=== PATIENT | male | born 1975 | race Caucasian/White ===

== ENCOUNTER → 2016-12-31 | Outpatient (CLI) | payer OTHER | LOC: COL.RAD 14:30 | DX: M76.892 Other specified enthesopathies of left lower limb, excluding foot (principal); M22.8X2 Other disorders of patella, left knee ==

== ENCOUNTER 2017-04-11 11:22 | Emergency (ER) | payer OTHER ==
[~2017-04-11] VITALS: Ht 188 cm; Wt 102.3 kg
[2017-04-11 11:35] VITALS: BP 145/112; PULSE 94; TEMP 97.6
[2017-04-11] MEDS ORDERED: NORCO 325 MG-51 TAB PO (12:45)
== END 2017-04-11 13:10 | disposition home or self-care (01) ==
LOC: COL.ER 11:22
DX: T22.112A Burn of first degree of left forearm, initial encounter (principal); T23.162A Burn of first degree of back of left hand, initial encounter; T25.121A Burn of first degree of right foot, initial encounter; T24.131A Burn of first degree of right lower leg, initial encounter; T24.132A Burn of first degree of left lower leg, initial encounter; X12.XXXA Contact with other hot fluids, initial encounter; Y92.238 Other place in hospital as the place of occurrence of the external cause
CPT/HCPCS: J1885

== ENCOUNTER → 2017-12-30 | Outpatient (CLI) | payer OTHER ==
[~2017-12-30] MED LIST: NORCO 325 MG-51 TAB PO
[2017-12-30 06:36] LABS: HEMATOCRIT 46.2 % (42.0-52.0); MEAN CELL VOLUME 86 fl (80.0-100.0); MEAN CORPUSCULAR HEMOGLOBIN 30 pg (27.0-31.0); MEAN CORPUSCULAR HGB CONC 35 g/dl (33.0-37.0); MEAN PLATELET VOLUME 9.6 fl (7.4-10.4); PLATELET COUNT 198 K/mm3 (130-400); RED BLOOD COUNT 5.37 M/mm3 (4.20-5.60); REDCELL DISTRIBUTION WIDTH-CV 12.7 % (11.5-14.5)
[2017-12-30 06:45] LABS: ALBUMIN 3.4 gm/dL (3.5-5.0); BILIRUBIN,TOTAL 0.6 mg/dL (0.0-1.0); CALCIUM 8.9 mg/dL (8.4-10.2); CHOLESTEROL RISK RATIO 3.9; CREATININE, serum 1.02 mg/dL (0.66-1.25); POTASSIUM 4.4 mmol/L (3.4-5.0); TOTAL PROTEIN 6.1 gm/dL (6.4-8.2)
[2017-12-30 07:15] LABS: THYROID STIMULATING HORMONE 2.22 uIU/mL (0.465-4.680)
== END ==
LOC: COL.LAB 06:10
PROVIDERS: Family Medicine
DX: Z00.00 Encounter for general adult medical examination without abnormal findings (principal)

== ENCOUNTER 2018-09-20 08:36 | Emergency (ER) | payer OTHER ==
[~2018-09-20] VITALS: Ht 188 cm; Wt 104.5 kg
[2018-09-20 08:39] VITALS: BP 155/116; PULSE 105; TEMP 98.3
[2018-09-20] MEDS ORDERED: NORCO 325 MG-51 TAB PO (09:56)
== END 2018-09-20 10:17 | disposition home or self-care (01) ==
LOC: COL.ER 08:36
DX: S62.623A Displaced fracture of middle phalanx of left middle finger, initial encounter for closed fracture (principal); S62.621A Displaced fracture of middle phalanx of left index finger, initial encounter for closed fracture; S62.635A Displaced fracture of distal phalanx of left ring finger, initial encounter for closed fracture; W22.8XXA Striking against or struck by other objects, initial encounter; Y92.009 Unspecified place in unspecified non-institutional (private) residence as the place of occurrence of the external cause
CPT/HCPCS: Q4050

== ENCOUNTER 2018-09-22 10:27 | Day surgery (SDC) | payer OTHER ==
[2018-09-22] MEDS ORDERED: ALLEGRA 60MG TA60 MG PO (11:27)
[2018-09-22] MEDS ORDERED: SUDAFED30 MG PO (11:29)
[2018-09-22 14:03] VITALS: BP 129/89; PULSE 73; TEMP 97.3
[2018-09-22 14:18] VITALS: BP 125/85; PULSE 75; TEMP 97.3
--- NOTE | 2018-09-22 14:30 | NUR ---
patient returns from OR via cart to bat 4. alert and oriented x 3. post op vital signs started. denies pain. water and coke given. spouse brought to room. call light within reach. will continue to monitor.
--- NOTE | 2018-09-22 14:31 | NUR ---
PATIENT WAS GIVEN A MUFFIN AND STRAWBERRY JELLO. SPOUSE AT BEDSIDE. VITAL SIGNS CONTINUE. CALL LIGHT WITHIN REACH. WILL CONTINUE TO MONITOR.
[2018-09-22 14:32] VITALS: BP 133/92; PULSE 74
[2018-09-22] MEDS ORDERED: NORCO 325 MG-51 TAB PO (14:50)
[2018-09-22 15:10] VITALS: BP 130/88; PULSE 76
--- NOTE | 2018-09-22 15:17 | NUR ---
PATIENT IV D'C IN RIGHT WRIST AND RIGHT AC, WNL. VITAL SIGNS STABLE. HAS EATEN, DRANK AND IRINATED. SLINGE GIVEN FOR LEFT ARM. DISCHARGE INSTRUCTIONS GIVEN TO PATIENT AND SPOUSE, VERBALIZED UNDERSTANDING. PATIENT GIVEN NORCO PRESWCRIPTION. AMBULATED TO ELEVATORS WITH THIS NURSE AND SPOUSE. DECLINED WHEELCHAIR.
--- NOTE | 2018-09-23 13:48 | NUR ---
PATIENT WAS ADMITTED AT 1048. DISCHARGED TO [facility] AT 1500. ALL OF THE CHARTING DATED 09/23/18 OCCURED ON 09/22/18 DURING ADMISSION.
[2018-09-23 13:53] VITALS: BP 142/96; PULSE 77; TEMP 97.4
== END 2018-09-22 15:00 | disposition home or self-care (01) ==
LOC: SDCO 10:27
DX: S62.623A Displaced fracture of middle phalanx of left middle finger, initial encounter for closed fracture (principal); Z80.9 Family history of malignant neoplasm, unspecified
CPT/HCPCS: J0690; J1100; J1885; J2250; J2405; J2704; J2795; J3010; J7120

== ENCOUNTER → 2018-11-20 | Outpatient (CLI) | payer OTHER ==
[~2018-11-20] MED LIST changes: +ALLEGRA 60MG TA60 MG PO; +SUDAFED30 MG PO
[2018-11-20 09:31] LABS: HEMATOCRIT 44.4 % (42.0-52.0); HEMOGLOBIN 14.8 g/dl (13.5-18.0); MEAN CELL VOLUME 90 fl (80.0-100.0); MEAN CORPUSCULAR HEMOGLOBIN 30 pg (27.0-31.0); MEAN CORPUSCULAR HGB CONC 33 g/dl (33.0-37.0); MEAN PLATELET VOLUME 9.6 fl (7.4-10.4); PLATELET COUNT 206 K/mm3 (130-400); RED BLOOD COUNT 4.95 M/mm3 (4.20-5.60)
[2018-11-20 09:45] LABS: BILIRUBIN,TOTAL 0.6 mg/dL (0.0-1.0); CHOLESTEROL RISK RATIO 4.6; POTASSIUM 3.9 mmol/L (3.4-5.0); TOTAL PROTEIN 7.3 gm/dL (6.4-8.2)
[2018-11-20 10:14] LABS: THYROID STIMULATING HORMONE 1.67 uIU/mL (0.465-4.680)
== END ==
LOC: COL.LAB 09:07
PROVIDERS: Family Medicine
DX: Z00.00 Encounter for general adult medical examination without abnormal findings (principal); Z13.220 Encounter for screening for lipoid disorders; Z13.1 Encounter for screening for diabetes mellitus

== ENCOUNTER → 2019-01-14 | Outpatient (RCR) | payer OTHER | LOC: WSOT | DX: Z48.89 Encounter for other specified surgical aftercare (principal); T84.7XXD Infection and inflammatory reaction due to other internal orthopedic prosthetic devices, implants and grafts, subsequent encounter; S62.623D Displaced fracture of middle phalanx of left middle finger, subsequent encounter for fracture with routine healing; S62.635D Displaced fracture of distal phalanx of left ring finger, subsequent encounter for fracture with routine healing; S62.651A Nondisplaced fracture of middle phalanx of left index finger, initial encounter for closed fracture ==

== ENCOUNTER → 2020-05-18 | Outpatient (CLI) | payer OTHER ==
[2020-05-18 07:26] LABS: HEMATOCRIT 50.1 % (42.0-52.0); HEMOGLOBIN 16.7 g/dl (13.5-18.0); MEAN CELL VOLUME 89 fl (80.0-100.0); MEAN CORPUSCULAR HEMOGLOBIN 30 pg (27.0-31.0); MEAN CORPUSCULAR HGB CONC 33 g/dl (33.0-37.0); MEAN PLATELET VOLUME 9.6 fl (7.4-10.4); PLATELET COUNT 197 K/mm3 (130-400); RED BLOOD COUNT 5.62 M/mm3 (4.20-5.60)
[2020-05-18 07:42] LABS: ALBUMIN 3.6 gm/dL (3.5-5.0); BILIRUBIN,TOTAL 0.6 mg/dL (0.0-1.0); CALCIUM 8.2 mg/dL (8.4-10.2); CHOLESTEROL RISK RATIO 3.5; CREATININE, serum 1.05 (0.66-1.25); POTASSIUM 4.1 mmol/L (3.4-5.0); TOTAL PROTEIN 6.1 gm/dL (6.4-8.2)
[2020-05-18 08:11] LABS: THYROID STIMULATING HORMONE 2.61 uIU/mL (0.465-4.680)
== END ==
LOC: COL.LAB 07:05
PROVIDERS: Family Medicine
DX: Z13.0 Encounter for screening for diseases of the blood and blood-forming organs and certain disorders involving the immune mechanism (principal); Z13.1 Encounter for screening for diabetes mellitus; Z13.220 Encounter for screening for lipoid disorders

== ENCOUNTER → 2021-08-09 | Outpatient (CLI) | payer OTHER ==
[2021-08-09 07:33] LABS: HEMATOCRIT 47.3 % (42.0-52.0); MEAN CELL VOLUME 90 fl (80.0-100.0); MEAN CORPUSCULAR HEMOGLOBIN 30 pg (27-31); MEAN CORPUSCULAR HGB CONC 34 g/dl (33.0-37.0); MEAN PLATELET VOLUME 9.7 fl (7.4-10.4); PLATELET COUNT 187 K/mm3 (130-400); RED BLOOD COUNT 5.26 M/mm3 (4.20-5.60); REDCELL DISTRIBUTION WIDTH-CV 13.6 % (11.5-14.5)
[2021-08-09 07:51] LABS: ALBUMIN 3.9 gm/dL (3.5-5.0); BILIRUBIN,TOTAL 0.5 mg/dL (0.2-1.2); CALCIUM 8.5 mg/dL (8.4-10.2); CHOLESTEROL RISK RATIO 3.3; TOTAL PROTEIN 7.3 gm/dL (6.2-8.1)
[2021-08-09 08:11] LABS: THYROID STIMULATING HORMONE 1.615 uIU/mL (0.350-4.940)
== END ==
LOC: COL.LAB 07:01
PROVIDERS: Family Medicine
DX: Z13.0 Encounter for screening for diseases of the blood and blood-forming organs and certain disorders involving the immune mechanism (principal); Z00.00 Encounter for general adult medical examination without abnormal findings; Z13.220 Encounter for screening for lipoid disorders; Z13.1 Encounter for screening for diabetes mellitus; Z13.29 Encounter for screening for other suspected endocrine disorder